=== PATIENT | male | born 1955 | race Hispanic/Latino ===

== ENCOUNTER 2017-03-08 19:30 | Inpatient (IN) | payer MEDICAID, OTHER ==
[2017-03-08 19:30] VITALS: BMI 36.1
--- NOTE | 2017-03-08 20:09 | C.PDOC ---
History Of Present Illness 61 year old male who presents to the ER with a complaint having suicidal thoughts with a plan to jump off a bridge. Denies previous suicide attempts. Time Seen by Provider: 03/08/17 19:53 Chief Complaint (Nursing): Psychiatric Evaluation History Per: Patient History/Exam Limitations: no limitations Onset/Duration Of Symptoms: Days Current Symptoms Are (Timing): Still Present Suicide/Self Injury Attempted (Context): None Modifying Factor(s): None Associated Symptoms: Suicidal Thoughts, Suicidal Plan Involuntary Hold By: None Recent travel outside of the [place]: No Past Medical History Reviewed: Historical Data, Nursing Documentation, Vital Signs Vital Signs: Last Vital Signs Temp 98.5 F 03/09/17 00:00 Pulse 87 03/09/17 00:00 Resp 20 03/09/17 00:00 BP 149/93 H 03/09/17 00:00 Pulse Ox 95 03/09/17 00:41 - Medical History PMH: HTN Surgical History: No Surg Hx - [facility] DETOXIFICATION SERVICES FOR SUBSTANCE ABUSE TREATMENT (02/09/16) INJECT/INFUSE NEC (02/15/07) Family History: States: Unknown Family Hx - Social History Hx Tobacco Use: No Hx Alcohol Use: Yes Hx Substance Use: Yes (Heroin, Xanax) - Immunization History Hx Tetanus Toxoid Vaccination: No Hx Influenza Vaccination: Yes Hx Pneumococcal Vaccination: No Review Of Systems Constitutional: Negative for: Fever, Chills Gastrointestinal: Negative for: Nausea, Vomiting, Diarrhea Psych: Positive for: Suicidal ideation (with plan) Physical Exam - Physical Exam Appears: Non-toxic, No Acute Distress, Other (Calm obese white male) Skin: Normal Color, Warm, Dry Head: Atraumatic, Normacephalic Oral Mucosa: Moist Chest: Symmetrical, No Tenderness Cardiovascular: Rhythm Regular, No Murmur Respiratory: Normal Breath Sounds, No Rales, No Rhonchi, No Wheezing Gastrointestinal/Abdominal: Soft, No Tenderness Neurological/Psych: Oriented x3, Normal Speech, Normal Cognition ED Course And Treatment - Laboratory Results Result Diagrams: 03/08/17 21:15 03/08/17 21:15 Lab Interpretation: Normal (tox neg.) ECG: Interpreted By Me ECG Rhythm: Sinus Rhythm ECG Interpretation: Normal Rate From EC O2 Sat by Pulse Oximetry: 95 Pulse Ox Interpretation: Normal - Radiology CXR: Interpreted by Me CXR Interpretation: Yes: No Acute Disease Progress Note: Blood work , CXR, EKG, and urinalysis ordered. 2200: d/w Crisis , no Psych beds available, pending psych eval for [facility] eval. CXR and EKG wnl, pt is Medically Cleared for Psych Eval by [facility]. 00:15: Patient refuses to be transfered to another facility, patient will be evaluated by Dr. Cornejo in the morning, patient is requesting to stay under EDOBS until then. Reevaluation Time: 23:11 Reassessment Condition: Improved (remains calm) ED OBSERVATION Date of observation admission: 03/09/17 Time of observation admission: 00:10 - Observation admission statement Patient is being placed in observation because:: Pending psychiatric evaluation. - Goals of Observation Goals of observation are:: Psychiatric evaluation. - Progress Note Progress Note: 03/09/17 00:41 Vitals stable. Disposition - Disposition Referrals: Vinayak Combs JD, MD [Primary Care Provider] - Disposition Time: 01:00 Condition: GOOD Forms: [employer] (Rwandan) - Clinical Impression Clinical Impression: Depression, Suicidal ideation - Scribe Statement The provider has reviewed the documentation as recorded by the Scribe Heath Arana All medical record entries made by the Scribe were at my direction and personally dictated by me. I have reviewed the chart and agree that the record accurately reflects my personal performance of the history, physical exam, medical decision making, and the department course for this patient. I have also personally directed, reviewed, and agree with the discharge instructions and disposition. Physician Patient Turnover Patient Signed Over To: Claire Alberto Handoff Comments: pending eval by Psych in AM
[2017-03-08 21:30] LABS: HEMATOCRIT 43.4 % (35.0-51.0); MEAN CELL VOLUME 88.9 fL (80.0-94.0); MEAN CORPUSCULAR HEMOGLOBIN 31.6 pg (27.0-31.0); MEAN CORPUSCULAR HGB CONC 35.6 g/dL (33.0-37.0); MEAN PLATELET VOLUME 7.4 fL (7.2-11.7); RED CELL DISTRIBUTION WIDTH 13.8 % (11.5-14.5); WHITE BLOOD COUNT 7.6 K/uL (4.8-10.8)
[2017-03-08 21:33] LABS: CHLORIDE 106 mmol/L (98-107); POTASSIUM 3.8 mmol/L (3.6-5.2); SODIUM 141 mmol/L (132-148)
[2017-03-08 21:35] LABS: BILIRUBIN,TOTAL 0.8 mg/dL (0.2-1.3); GFR AFRICAN-AMERICAN > 60
[2017-03-08 21:36] LABS: ALB/GLOB RATIO 1.6 (1.0-2.1); ALKALINE PHOSPHATASE 52 U/L (38-126); ALT/SGPT 33 U/L (21-72); AST/SGOT 17 U/L (17-59); BLOOD UREA NITROGEN 13 mg/dL (9-20); CALCIUM 8.9 mg/dl (8.6-10.4); CARBON DIOXIDE 24 mmol/L (22-30); GLUCOSE,RANDOM 82 mg/dL (75-110); TOTAL PROTEIN 6.8 g/dL (6.3-8.3)
[2017-03-08 21:37] LABS: ALCOHOL SERUM < 10 mg/dl (0-10)
[2017-03-08 22:30] LABS: RBC URINE 1 /hpf (0-3); URINE BACTERIA RARE (<OCC); URINE BILIRUBIN NEGATIVE (NEGATIVE); URINE BLOOD NEGATIVE (NEGATIVE); URINE COLOR Yellow (YELLOW); URINE GLUCOSE (UA) NORMAL (Normal); URINE KETONE NEGATIVE (NEGATIVE); URINE LEUKOCYTE ESTERASE NEG Leu/uL (Negative); URINE PROTEIN NEGATIVE (NEGATIVE); URINE UROBILINOGEN NORMAL mg/dL (0.2-1.0); WBC URINE 1 /hpf (0-5)
--- NOTE | 2017-03-09 09:37 | RAD ---
HISTORY: Admission film COMPARISON: No prior. TECHNIQUE: Chest PA and lateral FINDINGS: LUNGS: No focal infiltrate or effusion. Mild biapical pleural thickening with upper lobe granulomatous changes. Minimal scarring at the left lung base. PLEURA: No significant pleural effusion identified. No pneumothorax apparent. CARDIOVASCULAR: Normal. OSSEOUS STRUCTURES: No significant abnormalities. VISUALIZED UPPER ABDOMEN: Normal. OTHER FINDINGS: None. IMPRESSION: No focal infiltrate or effusion. Mild biapical pleural thickening with upper lobe granulomatous changes. Minimal scarring at the left lung base.
[2017-03-09] MEDS ORDERED: Aluminum Hydroxide/Magnesium Hydroxide Susp (30 mL) PO PRN (09:44)
[2017-03-09] MEDS ORDERED: Buprenorphine Hydrochloride 2 mg SL ONE ×2 (10:30→11:30)
--- NOTE | 2017-03-09 11:03 | PCM.BM ---
<Sophia Garcia - Last Filed: 03/09/17 11:01> Treatment Plan Problems - Problems identified on initial assessmt Opioid use disorder Date Initiated: 03/09/17 Time Initiated: 09:30 Assessment reference: NA Status: Active Treatment assets and liabiliti Patient Assests: adapts well, cooperative, self-reliant, ADL independent Patient Liabilities: financial problems, relationship conflicts, substance abuse - Milieu Protocol Maintain good personal hygiene: daily Encourage regular showers, daily Remind patient to perform daily oral care, daily Assist patient to perform ADL's, every shift Encourage regular showers, every shift Remind patient to perform daily oral care, every shift Assist patient to perform ADL's Maintain personal safety: daily Educate patient to report safety concerns to staff, daily Monitor environment for contraband/sharps, every shift Educate patient to report safety concerns to staff, every shift Monitor environment for contraband/sharps Medication safety: Monitor for expected outcome, potential side effects: daily, every shift, Assess barriers to learning: daily, every shift, Assess readiness for medication education: daily, every shift <Jaden Cornejo - Last Filed: 03/10/17 13:14> - Diagnosis (1) Opioid use disorder, severe, dependence Status: Acute Interventions: 03/10/17 13:14 * Assess 7x/week regarding severity of withdrawal * Educate regarding risks, benefits, side effects and alternatives of medications * Use Motivational Interviewing for abstinence * Use CBT for relapse prevention * Medication management for withdrawal symptoms * Encourage medication assisted treatment * <Genny Perry - Last Filed: 03/10/17 15:30> Family Contact Family involvement: Famliy/SO not involved Family contact: Patient agrees to contact - Goals for Treatment Patient goals for treatment: Complete detox and transtion to o/p therapy including co-occurring services. Supplement with AA/NA meetings and ascertain a sponsor. Discharge/Continuing Care - Education Needs Education Needs: Patient Medication, Patient Diagnosis/Disease Process, Patient Coping Skills, Patient Anger Management skills, Patient Placement options, Patient Community resources, Patient Aftercare Safety Plan - Discharge Discharge Criteria: Free of Suicidal thoughts, No longer exhibiting s/s of withdrawal, Reduction of target symptoms Discharge to:: With Family - Additional Comments 03/10/17 15:29 Pt's is also addicted to opiate and needs detox tx. when pt. is d/c. - Treatment Team Participation Patient/Family/SO Statement: 03/10/17 15:30 "I can go to an outpatient program in [place]...that sound good". Discussed with Family/SO: No Was Patient/Family/SO present at Treatment Team Meeting: Yes
--- NOTE | 2017-03-09 12:44 | PCM.PSYCH ---
Initial Psychiatric Evaluation - Initial Psychiatric Evaluation Type of Admission: Voluntary Legal Status: Capacity Chief Complaint (in patient's own words): "Heroin" History of Present Illness and Precipitating Events: The patient is seen, chart reviewed and case discussed. He is known from previous admission to detox. This is a 61-year-old male with one adult son. He is living with his in [place] and he is looking for a job. He used to live with his son. The patient admits to using heroin 6-7 bags intranasally or IV for the past 5 years. He says he started with painkillers prior to that. He had 3 detoxes at [facility] and here (2016) but no rehabs. He did go to [facility] in after his last detox here but quit very quickly b/c they were too strict, he claims. He sometimes goes to but he has no alcohol problems. He denies using all other drugs and cigarettes. He has never been on methadone or Suboxone. He last used yesterday and is already in withdrawal. Of note, the admits to feeling suicidal and depressed while he was using/ withdrawing yesterday and went to a bridhge in [facility] but did not jump and came to our ED after calling his . He was not admitted b/c he felt better and denied SI. Currently, he adamantly denies SI and is future oriented. Past psych history: Denies past or present history or symptoms. No suicidality Family psych history: Denies Medical history: HTN Current Medications: Active Medications Generic Name Dose Route Start Last Admin Trade Name Freq PRN Reason Stop Dose Admin Al Hydrox/Mg Hydrox/Simethicone 30 ml 03/09/17 09:44 Maalox 30 Ml PO TID PRN Indigestion / Heartburn Buprenorphine HCl 8 mg 03/10/17 10:00 Subutex SL 03/14/17 09:59 .TAPER DIANE Taper Clonidine HCl 0.1 mg 03/09/17 09:44 Catapres PO Q8 PRN COWS Score More or Equal to 5 Enalapril Maleate 20 mg 03/09/17 10:00 03/09/17 12:10 Vasotec PO 20 mg DAILY DIANE Administration Hydroxyzine HCl 50 mg 03/09/17 09:46 Atarax PO Q6H PRN Anxiety Ibuprofen 600 mg 03/09/17 09:46 Motrin Tab PO Q6H PRN Pain, moderate (4-7) Loperamide HCl 2 mg 03/09/17 09:44 03/09/17 10:54 Imodium PO 2 mg Q8 PRN Administration Diarrhea Ondansetron HCl 4 mg 03/09/17 09:44 Zofran Tab PO Q8 PRN Nausea/Vomiting Trazodone HCl 100 mg 03/09/17 09:46 Desyrel PO HS PRN Insomnia Past Psychiatric History - Past Psychiatric History Previous Treatment History: None Pertinent Medical Hx (Current Medical&Sleep Prob, Allergies): Allergies Allergy/AdvReac Type Severity Reaction Status Date / Time No Known Allergies Allergy Verified 03/08/17 19:43 Enalapril Maleate [Vasotec] 20 mg PO DAILY 03/08/17 Review of Systems - Psychiatric Psychiatric: Abnormal Sleep Pattern, Anxiety. absent: Depression, Hallucinations, Homicidal Ideation, Suicidal Ideation Mental Status Examination - Personal Presentation Personal Presentation: Looks stated age - Affect Affect: Constricted - Motor Activity Motor Activity: Calm - Reliability in Providing Information Reliability in Providing Information: Good - Speech Speech: Organized - Mood Mood: Anxious - Formal Thought Process Formal Thought Process: No Impairment - Cognitive Functions Orientation: Person, Place, Situation, Time Sensorium: Alert Estimate of Intelligence: Average Judgement: Intact, as evidence by: Insight regarding need for hospitalization Memory: Recent intact, as evidence by: Ability to recall events of the day, Remote intact, as evidenced by: Abilit to recall sig. life events - Risk Risk: Withdrawal, Diminished functioning - Strength & Assets Inventory Strength & Assets Inventory: Cooperative - Limitations Limitations: Other DSM 5 DX - DSM 5 DSM 5 Diagnosis: Opioid withdrawal Opioid use d/o - severe - Recommended/Plan of Treatment Treatment Recommendations and Plan of Treatment: Subutex detox As needed medications Attend groups and activities Supportive therapy and psychoeducation [place] for abstinence CBT for relapse prevention Encourage MAT Refer to rehab or IOP Attend self-help groups as well 34 min Projected ELOS: 4 days Prognosis: good w treatment - Smoking Cessation Smoking Cessation Initiated: Yes
--- NOTE | 2017-03-09 14:47 | CARD ---
APPROVED REPORT EKG Measurement Heart [id number] <Conclusion> Normal sinus rhythm Normal ECG
[2017-03-10] MEDS: Buprenorphine Hydrochloride 2 mg SL SCH (09:14)
--- NOTE | 2017-03-10 13:14 | PCM.PYCHPN ---
Psychiatric Progress Note - Psychiatric Progress Note Patient seen today, length of contact: 16 min Patient Chief Complaint: "I feel better today" Problems Identified/Issues Discussed: The pt is seen, chart reviewed, case discussed with staff. The pt is compliant with medications and reports no side-effects. Symptoms are improving but needs more time to stabilize. After care discussed, support and psychoeducation given. Medication Change: Yes (detox changes daily) Medical Record Reviewed: Yes Mental Status Examination - Cognitive Function Orientation: Person, Place, Situation, Time Memory: Intact Attention: WNL Concentration: Poor Association: WNL Fund of Knowledge: WNL - Mood Mood: Anxious - Affect Affect: Constricted - Speech Speech: Appropriate - Formal Thought Process Formal Thought Process: No Impairment - Suicidal Ideation Suicidal Ideation: No - Homicidal Ideation Homicidal Ideation: No Goal/Treatment Plan - Goal/Treatment Plan Need for Continued Stay: Discharge may exacerbated symptoms, Severe functional impairment Progress Toward Problem(s) and Goals/Treatment Plan: Subutex detox As needed medications Attend groups and activities Supportive therapy and psychoeducation [place] for abstinence CBT for relapse prevention Encourage MAT Refer to rehab or IOP Attend self-help groups as well
[2017-03-11] MEDS: Buprenorphine Hydrochloride 2 mg SL SCH (09:23)
--- NOTE | 2017-03-11 11:01 | PCM.PYCHPN ---
Psychiatric Progress Note - Psychiatric Progress Note Patient seen today, length of contact: 17 min Patient Chief Complaint: "I am doing OK Problems Identified/Issues Discussed: The pt is seen, chart reviewed, case discussed with staff. Support given, CBT and OH used briefly No new symptoms reported, improving slowly and needs more time No SEs from medications, risks discussed. After care discussed. Agrees with IOP Medication Change: Yes (detox changes daily) Medical Record Reviewed: Yes Mental Status Examination - Cognitive Function Orientation: Person, Place, Situation, Time Memory: Intact Attention: WNL Concentration: Poor Association: WNL Fund of Knowledge: WNL - Mood Mood: Anxious - Affect Affect: Constricted - Speech Speech: Appropriate - Formal Thought Process Formal Thought Process: No Impairment - Suicidal Ideation Suicidal Ideation: No - Homicidal Ideation Homicidal Ideation: No Goal/Treatment Plan - Goal/Treatment Plan Need for Continued Stay: Discharge may exacerbated symptoms, Severe functional impairment Progress Toward Problem(s) and Goals/Treatment Plan: Subutex detox As needed medications Attend groups and activities Supportive therapy and psychoeducation [place] for abstinence CBT for relapse prevention Encourage MAT Refer to rehab or IOP Attend self-help groups as well Estimated Date of D/C: 03/12/17
[2017-03-12] MEDS: Buprenorphine Hydrochloride 2 mg SL SCH (09:21)
--- NOTE | 2017-03-12 11:42 | PCM.PYCHPN ---
Psychiatric Progress Note - Psychiatric Progress Note Patient seen today, length of contact: 15 min Patient Chief Complaint: "Alright" Problems Identified/Issues Discussed: The pt is seen again, chart reviewed, case discussed with staff. The pt is compliant with medications and reports no side-effects. Symptoms are improving but needs more time to stabilize. After care discussed, support and psychoeducation given. He is a bit withdrawn but doesn't look or report being depressed. Medication Change: Yes (detox changes daily) Medical Record Reviewed: Yes Mental Status Examination - Cognitive Function Orientation: Person, Place, Situation, Time Memory: Intact Attention: WNL Concentration: Poor Association: WNL Fund of Knowledge: WNL - Mood Mood: Anxious - Affect Affect: Constricted - Speech Speech: Appropriate - Formal Thought Process Formal Thought Process: No Impairment - Suicidal Ideation Suicidal Ideation: No - Homicidal Ideation Homicidal Ideation: No Goal/Treatment Plan - Goal/Treatment Plan Need for Continued Stay: Discharge may exacerbated symptoms, Severe functional impairment Progress Toward Problem(s) and Goals/Treatment Plan: Subutex detox As needed medications Attend groups and activities Supportive therapy and psychoeducation [place] for abstinence CBT for relapse prevention Encourage MAT Refer to IOP, refusing rehab Attend self-help groups as well Estimated Date of D/C: 03/12/17
[2017-03-12 19:55] VITALS: RESP 18
[2017-03-13 09:09] VITALS: BP 129/84; PULSE 114; TEMP 98.2; O2SAT 97
[2017-03-13] MEDS: Buprenorphine Hydrochloride 2 mg SL SCH (09:20)
--- NOTE | 2017-03-13 16:17 | PCM.PYCHDC ---
Mental Status Examination - Mental Status Examination Orientation: Person, Place, Situation, Time Memory: Intact Mood: Neutral Affect: Other (Appropriate) Speech: Appropriate Attention: WNL Concentration: WNL Association: WNL Fund of Knowledge: WNL Formal Thought Process: No Impairment Description of patient's judgement and insight: Fair Psychotic Thoughts and Behaviors: None Suicidal Ideation: No Current Homicidal Ideation?: No Discharge Summary - Discharge Note Reason for Hospitalization: Opiate use disorder Laboratory Data: Reviewed Consultations:: List each consultation separately and include: 1. Reason for request. 2. Findings. 3. Follow-up Summary of Hospital Course include:: 1. Description of specific treatment plan utilized for patients during their course of treatmen. 2. Summarize the time- course for resolution of acute symptoms and/or regressed behaviors. 3. Describe issues identified and worked on during hospitalization. 4. Describe medication utilized. 5. Describe medical problems identified and treated. 6. Reassessment of suicide risk Summary of Hospital Course: The patient is seen, chart reviewed and case discussed. He is known from previous admission to detox. This is a 61-year-old male with one adult son. He is living with his in [place] and he is looking for a job. He used to live with his son. The patient admits to using heroin 6-7 bags intranasally or IV for the past 5 years. He says he started with painkillers prior to that. He had 3 detoxes at [facility] and here (2015) but no rehabs. He did go to [facility] in after his last detox here but quit very quickly b/c they were too strict, he claims. He sometimes goes to but he has no alcohol problems. He denies using all other drugs and cigarettes. He has never been on methadone or Suboxone. He last used yesterday and is already in withdrawal. Of note, the admits to feeling suicidal and depressed while he was using/ withdrawing yesterday and went to a bride [facility] but did not jump and came to our ED after calling his . He was not admitted b/c he felt better and denied SI. Currently, he adamantly denies SI and is future oriented. Past psych history: Denies past or present history or symptoms. No suicidality Family psych history: Denies Medical history: HTN During his stay in the hospital, patient was treated with Subutex detox protocol for opiate withdrawal symptoms. He was also started on other when necessary medications Started feeling better with the above treatment with no withdrawal symptoms. Today patient was stable and ready for discharge. At the time of evaluation and discharge, patient was awake alert oriented 3, had no delusions, no auditory or visual hallucinations, no suicidal ideations or homicidal ideations. Patient was discharged in a stable condition. Patient will go to [facility] for follow-up care after discharge from the hospital. - Final Diagnosis (DSM 5) Condition upon Discharge: GOOD Disposition: HOME/ ROUTINE Prescriptions/Medication Reconciliation: Enalapril Maleate [Vasotec] 20 mg PO DAILY #30 tab traZODone [Desyrel] 100 mg PO DAILY #30 tab - Smoking Cessation Smoking Cessation Medication prescribed: Yes - Antipsychotic Medications Pt discharged on 2 or more routine antipsychotic medications: No
== END 2017-03-13 11:10 | disposition home or self-care (01) | DRG 745 ==
LOC: SUPCPDRO 19:30 → C.ER 19:30 → C.7D 03-09 08:47
PROVIDERS: ADMIT Psychiatry & Neurology Psychiatry; ATTEND Psychiatry & Neurology Psychiatry
PROC: HZ2ZZZZ Detoxification Services for Substance Abuse Treatment (ICD-10-PCS; principal; 2017-03-09)
PROC: HZ59ZZZ Individual Psychotherapy for Substance Abuse Treatment, Supportive (ICD-10-PCS; 2017-03-09)
PROC: HZ46ZZZ Group Counseling for Substance Abuse Treatment, Psychoeducation (ICD-10-PCS; 2017-03-09)
PROC: GZ3ZZZZ Medication Management (ICD-10-PCS; 2017-03-09)
DX: F11.23 Opioid dependence with withdrawal (principal); R45.851 Suicidal ideations; F32.9 Major depressive disorder, single episode, unspecified; I10 Essential (primary) hypertension